=== PATIENT | female | born 1930 | race Caucasian/White ===

== ENCOUNTER 2016-06-11 14:46 | Emergency (ER) | payer OTHER ==
[~2016-06-11] VITALS: Ht 157.5 cm; Wt 62.0 kg
[~2016-06-11 14:46] MED LIST: ACET325T96 PO; ASCO250T4 PO; ASPCH81X PO; ATEN-175 PO; ATOR-24 PO; BNC/40 PO; CALC200T PO; CHOL1000 PO; CYCL0.05 OPB; DOCU100C31 PO; FOLI1TAB7 PO; GABA-113 PO; LACT3000 PO; LEVO75TA5 PO; LORA-741 PO; MULT-506 PO; NF656 TD; NTRGSL/4 UT; NXM/40 PO
[2016-06-11 14:59] VITALS: BP 188/91; PULSE 101; TEMP 36.5; O2SAT 98; Ht 157.5 cm; Wt 62.0 kg
[2016-06-11] MEDS ORDERED: OXYC1TAB3 PO (15:45)
[2016-06-11] MEDS ORDERED: CYCL0.052 OP (15:49)
--- NOTE | 2016-06-11 21:34 | EMERGENCY ROOM VISIT NOTE ---
History Report prepared by Dawna: Germaine Leslie Under the Supervision of: Dr. Romero Tristan M.D. First contact with patient: 15:27 Chief Complaint: BACK PAIN Stated Complaint: INTENSE PAIN IN BACK/LEGS, FEVER History of Present Illness The patient is a 85 year old female who presents to the Emergency Room with complaints of worsening right sided back pain for the past few days. She rates her discomfort as an 8/10 and notes it radiates down her right leg. Movement and ambulation worsen her discomfort. The patient reports she has experienced similar pain in the past. Her son reports she has had this type of pain for the past "20 years", but it has really worsened in the past 5 years. He states she was supposed to have an MRI today, ordered by the Pain Management clinic, but her pain was worse and kept her up at night so they came to the ED instead of getting the MRI. The patient denies any loss of control of her bowels or bladder. She denies any numbness or weakness in her arms or legs. She denies any recent fevers, cold or flu symptoms or abdominal pain. She stated that her face felt warm but she did not have a fever. She has been taking Tylenol for her discomfort, but states it provides minimal relief. Her son reports she did take Oxycodone in the past, but is no longer prescribed it by Pain Management. She has been receiving pain injections at the Pain Management clinic, and is scheduled to get an injection next week. The patient also denies any recent swelling in her legs or chest pain or shortness of breath. Source of History: patient, family (Son) Onset: past few days DIRECTOR PAYMENT Position: back (lower) Symptom Intensity: 8/10 Timing: worsening Modifying Factors (Worsening): movement, other (ambulation) Modifying Factors (Relieving): tylenol Associated Symptoms: No SOB, No abdominal pain, No chest pain, No fevers, No numbness (numbness in arms or legs), No weakness (weakness in arms or legs) Review of Systems See HPI for pertinent positives & negatives. A total of 10 systems reviewed and were otherwise negative. Past Medical & Surgical Medical Problems: (1) Benign hypertension (2) Clostridium difficile infection Family History FH: CAD (coronary artery disease) No pertinent family history Social History Smoking Status: Never Smoker Alcohol Use: none Drug Use: none Marital Status: Housing Status: lives alone Occupation Status: retired Current/Historical Medications Scheduled Ascorbic Acid (Vitamin C), 250 MG PO DAILY Aspirin (Aspirin Chewable), 81 MG PO DAILY Atenolol (Tenormin), 100 MG PO BID Atorvastatin (Lipitor), 40 MG PO DAILY Calcium Carbonate-Vitamin D (Oscal 500/200 D-3), 1 TAB PO BID Cholecalciferol (Vitamin D3), 1 TAB PO DAILY Cyclosporine (Ophth) (Restasis), 1 DROP OP BID Esomeprazole Magnesium (Nexium), 40 MG PO DAILY Folic Acid (Folvite), 1 MG PO DAILY Gabapentin (Neurontin), 300 MG PO DAILY Gabapentin (Neurontin), 600 MG PO BID Lactase (Lactaid), 3,000 UNITS PO DIRECTED Levothyroxine Sodium (Levothyroxine Sodium), 1 TAB PO DAILY Multivitamin (Multivitamin), 1 TAB PO DAILY Olmesartan Medoxomil (Benicar), 40 MG PO DAILY Scheduled PRN Acetaminophen Tab (Tylenol), 650 MG PO Q4H PRN Docusate Sodium (Docusate Sodium), 100 MG PO BID PRN Lidocaine (Lidoderm Patch 5%), 1 PATCH TD ONAMOFFPM PRN for Pain Lorazepam (Ativan), 0.5 MG PO DAILY PRN for Anxiety Nitroglycerin (Nitrostat), 0.4 MG UT UD PRN Oxycodone Ir (Roxicodone Ir), 5 MG PO Q4H PRN for Pain Allergies Coded Allergies: CI Pigment Blue 63 (Verified Allergy, Unknown, Unknown, 06/11/16) Cefazolin (Verified Allergy, Unknown, Unknown, 06/11/16) Ciprofloxacin (Verified Allergy, Unknown, Unknown, 06/11/16) Duloxetine (Verified Allergy, Unknown, Unknown, 06/11/16) Hydrochlorothiazide (Verified Allergy, Unknown, UNKNOWN, 06/11/16) Pregabalin (Verified Allergy, Unknown, Unknown, 06/11/16) Tramadol (Verified Allergy, Unknown, Unknown, 06/11/16) Uncoded Allergies: [id number] (Allergy, Unknown, Unknown, 10/25/14) Cefazolin [id number] (Allergy, Unknown, UNKNOWN, 10/25/14) Hydrochlorothiazide [id number] (Allergy, Unknown, Unknown, 10/25/14) Ciprofloxacin [id number] (Allergy, Unknown, Unknown, 10/25/14) Tramadol [id number] (Allergy, Unknown, Unknown, 10/25/14) CI Pigment Blue 63 [id number] (Allergy, Unknown, Unknown, 10/25/14) Duloxetine [id number] (Allergy, Unknown, Unknown, 10/25/14) Pregabalin Physical Exam Vital Signs Date Time Temp Pulse Resp B/P Pulse Ox O2 Delivery O2 Flow Rate FiO2 06/11/16 14:59 36.5 101 20 188/91 98 Room Air Physical Exam Constitutional: Vital signs reviewed. Eyes: Pupils are equal round reactive to light. Conjunctiva are noninjected. ENT: Pharynx is clear without erythema or exudate. Mucous membranes are moist. Neck supple without meningeal signs. Respiratory: Clear to auscultation bilaterally. Breath sounds are equal bilaterally. Cardiovascular: Regular rate and rhythm. No rubs or gallops. GI: Soft, nondistended and nontender. Bowel sounds are present. Musculoskeletal: No midline tenderness to the lumbosacral spine. Positive straight leg raise at 30 degrees on the right side, negative on the left side. No hip tenderness, no calf tenderness, no peripheral edema. Integumentary: No cyanosis. Neurological: The patient is awake and alert. Motor and sensation intact in lower extremities. DTR intact in bilateral lower extremities. Psychiatric: Normal affect. Medical Decision & Procedures ED Course 1531: The patient was evaluated in room B12A. A complete history and physical exam was performed. 1545: I reevaluated the patient. She is feeling better. I discussed her results and discharge instructions and she verbalized complete understanding and agreement. Medical Decision This is an 85-year-old female who presents with low back pain. I did perform a limited focused review of portions of the patient's old chart on the electronic medical record. The patient was seen by pain management on May 27 for right lower extremity radicular pain. She described the pain as radiating from her right lower back in L5 distribution to her ankle. Pain management recommended outpatient MRI. Werner Samuels of the [facility] noted the patient had some memory issues regarding being treated in the past for similar pain. I did evaluate the patient as noted above. The patient has had a history of radiculopathy and low back pain for 20 years. She is followed by pain management and scheduled for an MRI for increasing pain. She couldn't sleep last night and her pain was worse today so they came here rather than going to their MRI appointment. At this time she has no evidence of any type of infection. She has had no fevers. Her hip is not red or swollen. She is neurologically intact and does not have any signs of cauda equina syndrome or spinal cord injury. Her pain is consistent with lumbar radiculopathy. She has no swelling or tenderness to the legs to suggest DVT. I did recommend that they reschedule her MRI and follow with pain management. She has had oxycodone in the past and so I wrote her a prescription for oxycodone. She was discharged in good condition and given return instructions as outlined below. Impression Primary Impression: Lumbar radiculopathy, right Additional Impression: Acute exacerbation of chronic low back pain Scribe Attestation The scribe's documentation has been prepared under my direct and personally reviewed by me in its entirety. I confirm that the note above accurately reflects all work, treatment, procedures, and medical decision making performed by me. Departure Information Dispostion Home / Self-Care Prescriptions Oxycodone Ir (Roxicodone Ir) 5 Mg Tab 5 MG PO Q4H Y for Pain, #20 TAB Prov: Romero Tristan M.D. 06/11/16 Referrals León Felton M.D. (PCP) Patient Instructions Lumbar Radiculopathy, My [facility] Additional Instructions You have been examined and treated today on an emergency basis only. This is not a substitute for, or an effort to provide, complete comprehensive medical care. It is impossible to recognize and treat all injuries or illnesses in a single emergency department visit. It is therefore important that you follow up closely with your physician and pain specialist. Call as soon as possible for an appointment. Also try to reschedule your MRI. Return for worsening symptoms or if you develop fever, vomiting, abdominal pain, loss of control of your bowel or bladder, numbness or weakness to your legs, numbness to your private area, difficulty urinating, or any other concerning symptoms. Problem Qualifiers
== END 2016-06-11 16:04 | disposition home or self-care (01) ==
LOC: C.EDB 14:49
DX: M54.16 Radiculopathy, lumbar region (principal); G89.29 Other chronic pain; I10 Essential (primary) hypertension; Z79.82 Long term (current) use of aspirin

== ENCOUNTER 2016-06-18 09:39 | Emergency (ER) | payer OTHER ==
[~2016-06-18] VITALS: Ht 162.6 cm; Wt 73.1 kg
[~2016-06-18 09:39] MED LIST changes: -CYCL0.05 OPB; +CYCL0.052 OP; +OXYC1TAB3 PO
[2016-06-18 09:44] VITALS: TEMP 36.5; Ht 162.6 cm; Wt 73.1 kg
--- NOTE | 2016-06-18 10:45 | EMERGENCY ROOM VISIT NOTE ---
History Report prepared by Dawna: Naresh Soria Under the Supervision of: Dr. Jamie Baez M.D. First contact with patient: 10:22 Chief Complaint: BACK PAIN Stated Complaint: BACK PAIN History of Present Illness The patient is an 85 year old female who presents to the Emergency Room with complaints of worsening back pain that started 1 month ago. She says he pain has been intermittent, and worsens with moving, laughing, or coughing. She states that the pain is mostly in her mid-back and she describes the pain as sharp. The pain at it's worst is a 7 or an 8 out of 10 in severity. The patient notes that the pain intermittently radiates down both legs. She did try taking pain medications including oxycodone, but they did not help much. She was here last week and had an MRI scheduled, but she could not make it. The patient denies any bladder problems, bowel problems, weakness, numbness, tingling, fevers, chills, nausea, vomiting, headaches, or new rashes. She also denies any recent falls, trauma, or changes in exercise regiment. The patient has no history of back surgery. Source of History: patient Onset: 1 month ago Position: back Symptom Intensity: at worst is 7 or 8 out of 10 in severity Quality: sharp Timing: worsening Modifying Factors (Worsening): movement, other (laughing, coughing) Associated Symptoms: No chills, No fevers, No headache, No nausea, No numbness, No rash, No vomiting, No weakness Note: Associated symptoms: Pain radiating down both legs. Denies bladder problems, bowel problems, tingling. Review of Systems See HPI for pertinent positives & negatives. A total of 10 systems reviewed and were otherwise negative. Past Medical & Surgical Medical Problems: (1) Benign hypertension (2) Clostridium difficile infection Family History FH: CAD (coronary artery disease) No pertinent family history Social History Smoking Status: Former Smoker Alcohol Use: none Drug Use: none Marital Status: Housing Status: lives alone Occupation Status: retired Current/Historical Medications Scheduled Amlodipine Besylate (Norvasc), 1 TAB PO DAILY Aspirin (Aspirin Chewable), 81 MG PO DAILY Atenolol (Tenormin), 1 TAB PO DAILY Atorvastatin (Lipitor), 40 MG PO DAILY Cyclosporine (Ophth) (Restasis), 1 DROP OP BID Esomeprazole Magnesium (Esomeprazole Magnesium), 1 TAB PO DAILY Gabapentin (Gabapentin), 1 TAB PO DAILY Levothyroxine Sodium (Levothyroxine Sodium), 1 TAB PO DAILY Multivitamin (Multivitamin), 1 TAB PO DAILY Olmesartan Medoxomil (Benicar), 40 MG PO DAILY Scheduled PRN Acetaminophen Tab (Tylenol), 650 MG PO Q4H PRN Hydrocodone/Acetaminophen 5MG/325MG (Orbisonia 5MG/325MG), 2 TABLETS PO Q6 PRN for Pain Lorazepam (Ativan), 0.5 MG PO DAILY PRN for Anxiety Nitroglycerin (Nitrostat), 0.4 MG UT UD PRN Oxycodone Ir (Roxicodone Ir), 5 MG PO Q4H PRN for Pain Allergies Coded Allergies: CI Pigment Blue 63 (Verified Allergy, Unknown, Unknown, 06/18/16) Cefazolin (Verified Allergy, Unknown, Unknown, 06/18/16) Ciprofloxacin (Verified Allergy, Unknown, Unknown, 06/18/16) Duloxetine (Verified Allergy, Unknown, Unknown, 06/18/16) Hydrochlorothiazide (Verified Allergy, Unknown, UNKNOWN, 06/18/16) Pregabalin (Verified Allergy, Unknown, Unknown, 06/18/16) Tramadol (Verified Allergy, Unknown, Unknown, 06/18/16) Uncoded Allergies: [id number] (Allergy, Unknown, Unknown, 10/25/14) Cefazolin [id number] (Allergy, Unknown, UNKNOWN, 10/25/14) Hydrochlorothiazide [id number] (Allergy, Unknown, Unknown, 10/25/14) Ciprofloxacin [id number] (Allergy, Unknown, Unknown, 10/25/14) Tramadol [id number] (Allergy, Unknown, Unknown, 10/25/14) CI Pigment Blue 63 [id number] (Allergy, Unknown, Unknown, 10/25/14) Duloxetine [id number] (Allergy, Unknown, Unknown, 10/25/14) Pregabalin Physical Exam Vital Signs Date Time Temp Pulse Resp B/P Pulse Ox O2 Delivery O2 Flow Rate FiO2 06/18/16 14:33 64 18 155/77 98 06/18/16 13:39 64 18 155/77 98 Room Air 06/18/16 11:38 54 17 169/95 98 Room Air 06/18/16 09:44 36.5 63 16 175/95 97 Room Air Physical Exam GENERAL: Patient is a healthy-appearing well-nourished HEAD: Normocephalic atraumatic EYES: Ocular movements intact pupils equal and react to light OROPHARYNX mucous membranes are moist no exudates present no erythema or edema present NECK: Supple no nuchal rigidity CHEST: Good equal expansion LUNGS: Clear and equal to auscultation CARDIAC: Normal S1 and S2 ABDOMEN: Soft nontender no guarding BACK: No CVA tenderness EXTREMITIES: No pain upon palpation normal muscle strength in all groups no clubbing cyanosis or edema NEURO: Patient is following commands is answering questions appropriately. Alert and oriented x3 Cranial Nerves 2-12 grossly intact Medical Decision & Procedures ER Provider Diagnostic Interpretation: MRI results as stated below per my review and radiologist interpretation: MRI OF THE LUMBAR SPINE WITHOUT IV CONTRAST CLINICAL HISTORY: Chronic low back pain. COMPARISON STUDY: Abdominal CT dated 10/01/2010. TECHNIQUE: MR of the lumbar spine is performed utilizing various T1 and T2-weighted sequences in the axial and sagittal planes. IV contrast was not administered for this examination. The examination is severely compromised by spinal scoliosis and motion artifact. FINDINGS: Lumbar spine: There is moderate lumbar levoscoliosis centered at L2. A mild compression deformity of T12 and a moderate compression deformity of L1 are unchanged from 2011. There is an age indeterminant but likely chronic compression deformity of L2 which was not seen in 2011. No retropulsed fragments are identified. Vertebral body height is otherwise maintained throughout the lumbar spine. Alignment is preserved. There is near-complete bony fusion of L4 and L5. The transverse and spinous processes are intact as visualized. Significant degenerative endplate edema is seen at L2-L3. Mild endplate edema is seen at L1-L2. Marrow signal intensity is heterogeneous. No destructive bony lesion is identified. Findings suggest previous right hemilaminectomy at L5-S1. Intervertebral discs: Advanced degenerative disc desiccation and loss of height is seen at all lumbar levels. This is greatest at L4-L5 where there is near-complete bony fusion. Minimal fluid in the L1-L2 disc is likely on a degenerative basis. Spinal cord: Partially imaged spinal cord is normal in morphology and signal intensity. The conus medullaris terminates at the level of L1. The nerve roots of the cauda equina are morphologically normal. T12-L1: There is a posterior disc bulge eccentric to the left. The central canal appears clear. L1-L2: There is posterior disc bulge. In conjunction with hypertrophy of the ligamentum flavum there is moderate central canal stenosis at this level with a minimum AP diameter of 7 mm. Facet arthropathy and marginal osteophytes cause moderate right-sided neuroforaminal stenosis. There is only mild left-sided neuroforaminal narrowing at this level. L2-L3: There is a posterior disc osteophyte complex. In conjunction with hypertrophy of the ligamentum flavum there is moderate central canal stenosis at this level with a minimum AP diameter of 6 mm. The disc bulge is eccentric to the right, there is severe right-sided subarticular stenosis with probable impingement on the exiting right L2 nerve root. This also likely impinges on the transiting right-sided nerve roots. There is moderate right neuroforaminal stenosis secondary to facet arthropathy and osteophyte formation. The left neural foramen appears clear. L3-L4: There is a small posterior disc osteophyte complex. In conjunction with hypertrophy of the ligamentum flavum this contributes to mild acquired compromise of the central canal with a minimum AP diameter of 9 mm. Facet arthropathy causes moderate to severe left and minimal right neuroforaminal stenosis. L4-L5: The central canal and neural foramina appear clear. Mild facet arthropathy is of no consequence. L5-S1: There is a disc bulge eccentric to the left. This causes severe left-sided subarticular stenosis and may impinge on the exiting left L5 nerve root. The central canal is clear. There is mild right neuroforaminal stenosis secondary to facet arthropathy. Sacrum: Partially visualized sacrum appears intact. No marrow edema is identified. Soft tissues: There is near complete fatty atrophy of the paraspinous musculature. The kidneys demonstrate cortical atrophy. The retroperitoneal structures are not well visualized. IMPRESSION: 1. Advanced lumbosacral spondylosis and scoliosis as above with multilevel acquired compromise of the central canal. See discussion for detailed level by level analysis. 2. There are chronic compression deformities seen involving T12 and L1. These are unchanged from 2011. A compression deformity of L2 is also almost certainly chronic but is new from 2011. 3. Advanced degenerative disc disease with significant degenerative endplate edema is present at L2-L3. Dictated: 06/18/2016 1:13 PM Transcribed: 06/18/2016 1:54 PM [email or web address] Laboratory Results 06/18/16 11:50 Red Blood Count 4.02, Mean Corpuscular Volume 90.8, Mean Corpuscular Hemoglobin 31.1, Mean Corpuscular Hemoglobin Concent 34.2, Mean Platelet Volume 9.2, Neutrophils (%) (Auto) 62.9, Lymphocytes (%) (Auto) 21.9, Monocytes (%) (Auto) 11.5, Eosinophils (%) (Auto) 3.3, Basophils (%) (Auto) 0.3, Neutrophils # (Auto ) 4.32, Lymphocytes # (Auto) 1.51, Monocytes # (Auto) 0.79, Eosinophils # (Auto ) 0.23, Basophils # (Auto) 0.02 06/18/16 11:50 Test 06/18/16 11:50 White Blood Count 6.88 K/uL (4.8-10.8) Red Blood Count 4.02 M/uL (4.2-5.4) Hemoglobin 12.5 g/dL (12.0-16.0) Hematocrit 36.5 % (37-47) Mean Corpuscular Volume 90.8 fL (80-100) Mean Corpuscular Hemoglobin 31.1 pg (25-34) Mean Corpuscular Hemoglobin Concent 34.2 g/dl (32-36) Platelet Count 229 K/uL (130-400) Mean Platelet Volume 9.2 fL (7.4-10.4) Neutrophils (%) (Auto) 62.9 % Lymphocytes (%) (Auto) 21.9 % Monocytes (%) (Auto) 11.5 % Eosinophils (%) (Auto) 3.3 % Basophils (%) (Auto) 0.3 % Neutrophils # (Auto) 4.32 K/uL (1.4-6.5) Lymphocytes # (Auto) 1.51 K/uL (1.2-3.4) Monocytes # (Auto) 0.79 K/uL (0.11-0.59) Eosinophils # (Auto) 0.23 K/uL (0-0.5) Basophils # (Auto) 0.02 K/uL (0-0.2) RDW Standard Deviation 42.4 fL (36.4-46.3) RDW Coefficient of Variation 12.7 % (11.5-14.5) Immature Granulocyte % (Auto) 0.1 % Immature Granulocyte # (Auto) 0.01 K/uL (0.00-0.02) Anion Gap 9.0 mmol/L (3-11) Est Creatinine Clear Calc Drug Dose 50.3 ml/min Estimated GFR () 75.6 Estimated GFR (Non- 65.2 BUN/Creatinine Ratio 16.1 (10-20) Calcium Level 9.3 mg/dl (8.5-10.1) Total Bilirubin 0.5 mg/dl (0.2-1) Direct Bilirubin 0.2 mg/dl (0-0.2) Aspartate Amino Transf (AST/SGOT) 36 U/L (15-37) Alanine Aminotransferase (ALT/SGPT) 31 U/L (12-78) Alkaline Phosphatase 130 U/L (45-117) Total Protein 8.5 gm/dl (6.4-8.2) Albumin 3.3 gm/dl (3.4-5.0) Lipase 178 U/L (73-393) Labs reviewed by ED physician. Medications Administered Medications (Trade) Dose Ordered Sig/Aris Route Start Time Stop Time Status Last Admin Dose Admin Morphine Sulfate (MoRPHine SULFATE INJ) 4 mg NOW STAT IV 06/18/16 11:22 06/18/16 11:23 DC 06/18/16 11:37 4 MG Ondansetron HCl (Zofran Inj) 4 mg NOW STAT IV 06/18/16 11:22 06/18/16 11:23 DC 06/18/16 11:36 4 MG Acetaminophen/ Hydrocodone Bitart (Orbisonia 5/325 Tab) 2 tab NOW STAT PO 06/18/16 14:12 06/18/16 14:14 DC 06/18/16 14:31 2 TAB ED Course 1119: Past medical records reviewed. The patient was evaluated in room A9B. A complete history and physical examination was performed. 1122: Ordered Zofran Inj 4 mg IV, Morphine Sulfate Inj 4 mg IV. Medical Decision Differential diagnosis: Etiologies such as musculoskeletal, disc herniation, fracture, aortic disease, metastatic disease, cord compression, discitis, infection, renal colic, gastrointestinal, acute exacerbation of chronic back pain, sciatica, cauda equina, as well as others were entertained. This is an 85-year-old female who presents emergency department complaining of low back pain. The patient was scheduled for an MRI by pain management last week however she missed this appointment. An IV was established here in the emergency Department patient was given morphine. She was sent for an MRI of her lumbar spine. This did not show any acute process. I believe based on these findings at the patient can be safely discharged home for follow-up with pain management. The patient was given Orbisonia for pain. Both patient and son were in agreement with the treatment plan. Impression Primary Impression: Acute exacerbation of chronic low back pain Scribe Attestation The scribe's documentation has been prepared under my direction and personally reviewed by me in its entirety. I confirm that the note above accurately reflects all work, treatment, procedures, and medical decision making performed by me. Departure Information Dispostion Home / Self-Care Prescriptions Hydrocodone/Acetaminophen 5MG/325MG (Orbisonia 5MG/325MG) Tab 2 TABLETS PO Q6 Y for Pain, #14 TAB Prov: Jamie Baez MD 06/18/16 Referrals León Felton M.D. (PCP) Patient Instructions My [facility]
[2016-06-18] MEDS ORDERED: ESOM1CAP34 PO (11:11)
[2016-06-18] MEDS ORDERED: GABA1CAP4 PO (11:11)
[2016-06-18] MEDS ORDERED: ATEN100T PO (11:11)
[2016-06-18] MEDS ORDERED: AMLO2.5T PO (11:11)
[2016-06-18] MEDS ORDERED: ONDANSETRON INJ 2 MG/ML 2 ML VIAL IV STA (11:22)
[2016-06-18] MEDS ORDERED: MoRPHine SULFATE 4 MG/ML 1 ML CARP\\VIAL IV STA (11:22)
[2016-06-18 12:10] LABS: BASO % 0.3 %; BASO ABS # 0.02 K/uL (0-0.2); COMPLETE YES; EOS % 3.3 %; HEMATOCRIT 36.5 % (37-47); IG% 0.1 %; LYMPH % 21.9 %; LYMPH ABS # 1.51 K/uL (1.2-3.4); MEAN CELL VOLUME 90.8 fL (80-100); MEAN CORPUSCULAR HEMOGLOBIN 31.1 pg (25-34); MEAN CORPUSCULAR HGB CONC 34.2 g/dl (32-36); MEAN PLATELET VOLUME 9.2 fL (7.4-10.4); MONO % 11.5 %; NEUT % 62.9 %; PLATELET COUNT 229 K/uL (130-400); RED BLOOD COUNT 4.02 M/uL (4.2-5.4); WHITE BLOOD COUNT 6.88 K/uL (4.8-10.8)
[2016-06-18 12:29] LABS: BUN/CREATININE RATIO 16.1 (10-20); CALCIUM 9.3 mg/dl (8.5-10.1); CREATININE 0.83 mg/dl (0.60-1.20); POTASSIUM 4.4 mmol/L (3.5-5.1)
--- NOTE | 2016-06-18 13:54 | DIAGNOSTIC IMAGING REPORT ---
MRI OF THE LUMBAR SPINE WITHOUT IV CONTRAST CLINICAL HISTORY: Chronic low back pain. COMPARISON STUDY: Abdominal CT dated 10/01/2010. TECHNIQUE: MR of the lumbar spine is performed utilizing various T1 and T2-weighted sequences in the axial and sagittal planes. IV contrast was not administered for this examination. The examination is severely compromised by spinal scoliosis and motion artifact. FINDINGS: Lumbar spine: There is moderate lumbar levoscoliosis centered at L2. A mild compression deformity of T12 and a moderate compression deformity of L1 are unchanged from 2011. There is an age indeterminant but likely chronic compression deformity of L2 which was not seen in 2011. No retropulsed fragments are identified. Vertebral body height is otherwise maintained throughout the lumbar spine. Alignment is preserved. There is near-complete bony fusion of L4 and L5. The transverse and spinous processes are intact as visualized. Significant degenerative endplate edema is seen at L2-L3. Mild endplate edema is seen at L1-L2. Marrow signal intensity is heterogeneous. No destructive bony lesion is identified. Findings suggest previous right hemilaminectomy at L5-S1. Intervertebral discs: Advanced degenerative disc desiccation and loss of height is seen at all lumbar levels. This is greatest at L4-L5 where there is near-complete bony fusion. Minimal fluid in the L1-L2 disc is likely on a degenerative basis. Spinal cord: Partially imaged spinal cord is normal in morphology and signal intensity. The conus medullaris terminates at the level of L1. The nerve roots of the cauda equina are morphologically normal. T12-L1: There is a posterior disc bulge eccentric to the left. The central canal appears clear. L1-L2: There is posterior disc bulge. In conjunction with hypertrophy of the ligamentum flavum there is moderate central canal stenosis at this level with a minimum AP diameter of 7 mm. Facet arthropathy and marginal osteophytes cause moderate right-sided neuroforaminal stenosis. There is only mild left-sided neuroforaminal narrowing at this level. L2-L3: There is a posterior disc osteophyte complex. In conjunction with hypertrophy of the ligamentum flavum there is moderate central canal stenosis at this level with a minimum AP diameter of 6 mm. The disc bulge is eccentric to the right, there is severe right-sided subarticular stenosis with probable impingement on the exiting right L2 nerve root. This also likely impinges on the transiting right-sided nerve roots. There is moderate right neuroforaminal stenosis secondary to facet arthropathy and osteophyte formation. The left neural foramen appears clear. L3-L4: There is a small posterior disc osteophyte complex. In conjunction with hypertrophy of the ligamentum flavum this contributes to mild acquired compromise of the central canal with a minimum AP diameter of 9 mm. Facet arthropathy causes moderate to severe left and minimal right neuroforaminal stenosis. L4-L5: The central canal and neural foramina appear clear. Mild facet arthropathy is of no consequence. L5-S1: There is a disc bulge eccentric to the left. This causes severe left-sided subarticular stenosis and may impinge on the exiting left L5 nerve root. The central canal is clear. There is mild right neuroforaminal stenosis secondary to facet arthropathy. Sacrum: Partially visualized sacrum appears intact. No marrow edema is identified. Soft tissues: There is near complete fatty atrophy of the paraspinous musculature. The kidneys demonstrate cortical atrophy. The retroperitoneal structures are not well visualized. IMPRESSION: 1. Advanced lumbosacral spondylosis and scoliosis as above with multilevel acquired compromise of the central canal. See discussion for detailed level by level analysis. 2. There are chronic compression deformities seen involving T12 and L1. These are unchanged from 2011. A compression deformity of L2 is also almost certainly chronic but is new from 2011. 3. Advanced degenerative disc disease with significant degenerative endplate edema is present at L2-L3. Dictated: 06/18/2016 1:13 PM Transcribed: 06/18/2016 1:54 PM [email or web address] Electronically signed by: Al Jacinto M.D. 06/18/2016 2:00 PM Dictated Date/Time: 06/18/2016 1:13 PM
[2016-06-18] MEDS ORDERED: HYDROCODONE/ACETAMOPHEN 5/325MG TAB PO STA (14:12)
[2016-06-18] MEDS ORDERED: HYDR-5688 PO (14:18)
[2016-06-18 14:33] VITALS: BP 155/77; PULSE 64; O2SAT 98
== END 2016-06-18 14:34 | disposition home or self-care (01) ==
LOC: EDBD 09:39 → C.EDA 09:42
DX: M54.5 Low back pain (principal); G89.29 Other chronic pain; I10 Essential (primary) hypertension; Z87.891 Personal history of nicotine dependence; Z79.82 Long term (current) use of aspirin

== ENCOUNTER → 2016-10-21 | Outpatient (CLI) | payer OTHER ==
[~2016-10-21] MED LIST changes: +AMLO2.5T PO; -ASCO250T4 PO; -ATEN-175 PO; +ATEN100T PO; -CALC200T PO; -CHOL1000 PO; -DOCU100C31 PO; +ESOM1CAP34 PO; -FOLI1TAB7 PO; -GABA-113 PO; +GABA1CAP4 PO; +HYDR-5688 PO; -LACT3000 PO; -NF656 TD; -NXM/40 PO
[2016-10-21 14:17] LABS: BLOOD UREA NITROGEN 17 mg/dl (7-18); BUN/CREATININE RATIO 15.6 (10-20); CALCIUM 9.5 mg/dl (8.5-10.1); CARBON DIOXIDE 27 mmol/L (21-32); CHLORIDE 110 mmol/L (98-107); GLUCOSE 82 mg/dl (70-99); POTASSIUM 3.7 mmol/L (3.5-5.1); SODIUM 142 mmol/L (136-145)
== END | disposition home or self-care (01) ==
LOC: C.LABBC 11:45
PROVIDERS: ATTEND Internal Medicine Geriatric Medicine
DX: R79.89 Other specified abnormal findings of blood chemistry (principal); E03.9 Hypothyroidism, unspecified

== ENCOUNTER → 2017-07-24 | Outpatient (CLI) | payer OTHER ==
[~2017-07-24] MED LIST changes: +ACET-1693 PO; -ACET325T96 PO; +GABA-1219 PO; -GABA1CAP4 PO; -HYDR-5688 PO; -OXYC1TAB3 PO
[2017-07-24 11:23] LABS: BASO % 0.6 %; BASO ABS # 0.03 K/uL (0-0.2); EOS ABS # 0.16 K/uL (0-0.5); HEMATOCRIT 34.3 % (37-47); HEMOGLOBIN 11.5 g/dL (12.0-16.0); IG# 0.02 K/uL (0.00-0.02); LYMPH % 29.8 %; LYMPH ABS # 1.61 K/uL (1.2-3.4); MEAN CELL VOLUME 97.2 fL (80-100); MEAN CORPUSCULAR HEMOGLOBIN 32.6 pg (25-34); MEAN CORPUSCULAR HGB CONC 33.5 g/dl (32-36); MEAN PLATELET VOLUME 9.4 fL (7.4-10.4); MONO % 10.6 %; MONO ABS # 0.57 K/uL (0.11-0.59); NEUT % 55.6 %; NEUT ABS # 3.01 K/uL (1.4-6.5); PLATELET COUNT 234 K/uL (130-400); RED CELL DISTRIBUTION WIDTH CV 12.8 % (11.5-14.5); RED CELL DISTRIBUTION WIDTH SD 44.8 fL (36.4-46.3)
[2017-07-24 11:46] LABS: ALBUMIN 2.9 gm/dl (3.4-5.0); ALT/SGPT 26 U/L (12-78); AST/SGOT 27 U/L (15-37); BLOOD UREA NITROGEN 12 mg/dl (7-18); CARBON DIOXIDE 26 mmol/L (21-32); CREATININE 0.74 mg/dl (0.60-1.20); GLUCOSE 83 mg/dl (70-99); POTASSIUM 3.8 mmol/L (3.5-5.1); SODIUM 140 mmol/L (136-145)
[2017-07-24 11:56] LABS: ALKALINE PHOSPHATASE 128 U/L (45-117); TOTAL PROTEIN 8.4 gm/dl (6.4-8.2)
== END | disposition home or self-care (01) ==
LOC: C.LABSPEC 11:57
PROVIDERS: ATTEND Internal Medicine Geriatric Medicine
DX: I10 Essential (primary) hypertension (principal); E03.9 Hypothyroidism, unspecified; E78.5 Hyperlipidemia, unspecified; R73.9 Hyperglycemia, unspecified; D47.2 Monoclonal gammopathy